=== PATIENT | female | born 1990 | race Caucasian/White ===

== ENCOUNTER → 2019-10-25 14:53 | Outpatient (CLI) | payer BC, SELFPAY ==
[2019-10-25 14:45] VITALS: BMI 22.6
--- NOTE | 2019-10-25 14:53 | RAD_ITS ---
STUDY: X-RAY - RIGHT SHOULDER REASON FOR EXAM: Female, 29 years old. FALL TECHNIQUE: 4 view(s) of the shoulder. COMPARISON: None. FINDINGS: Normal glenohumeral articulation. Normal acromioclavicular joint. Normal acromion. There is a nondisplaced avulsion type fracture of the greater tuberosity. The soft tissue structures are unremarkable. Normal visualized pulmonary apex. RAD/Shoulder min 2 Views IMPRESSION: Nondisplaced avulsion type fracture of the greater tuberosity of the proximal right humerus. Electronically Signed: David Fink, at 15:17 EST , Service support ,
== END ==
PROVIDERS: Referring Provider Physician Assistant; Visit Provider Physician Assistant
DX: S49.91XA Unspecified injury of right shoulder and upper arm, initial encounter (principal)
CPT/HCPCS: 73030

== ENCOUNTER → 2019-11-03 09:54 | Outpatient (CLI) | payer BC, SELFPAY ==
[2019-11-03 09:54] VITALS: BMI 22.6
--- NOTE | 2019-11-03 09:55 | RAD_ITS ---
STUDY: X-RAY - RIGHT SHOULDER REASON FOR EXAM: Female, 29 years old. FOLLOW UP RT SHOULDER FX COMPARISON: Previous right shoulder were obtained on 10/25/2019 FINDINGS: Studies of the right shoulder in [5 ] projections shows no evidence of fracture, dislocation, or bony destruction. RAD/Shoulder min 2 Views IMPRESSION: Normal x-ray examination of the shoulder. Electronically Signed: Jose Luis Zuluaga, at 11:41 EST Tel , Service support ,
== END ==
PROVIDERS: Referring Provider Orthopaedic Surgery; Visit Provider Orthopaedic Surgery
DX: S42.253A Displaced fracture of greater tuberosity of unspecified humerus, initial encounter for closed fracture (principal); X58.XXXA Exposure to other specified factors, initial encounter; Y93.9 Activity, unspecified; Y92.9 Unspecified place or not applicable; Y99.9 Unspecified external cause status
CPT/HCPCS: 73030

== ENCOUNTER → 2019-11-24 12:11 | Outpatient (CLI) | payer BC, SELFPAY ==
[2019-11-03 09:54] VITALS: BMI 22.6
--- NOTE | 2019-11-24 12:11 | RAD_ITS ---
STUDY: X-RAY - RIGHT SHOULDER REASON FOR EXAM: Female, 29 years old. Shoulder pain for one month after being pulled TECHNIQUE: 4 view(s) of the shoulder. COMPARISON: None. FINDINGS: Normal glenohumeral articulation. Normal acromioclavicular joint. Normal acromion. Normal humeral head and visualized proximal humerus. The soft tissue structures are unremarkable. Normal visualized pulmonary apex. RAD/Shoulder min 2 Views IMPRESSION: Normal x-ray examination of the shoulder. Electronically Signed: David Fink, at 12:36 EDT , Service support ,
== END ==
PROVIDERS: Referring Provider Orthopaedic Surgery; Visit Provider Orthopaedic Surgery
DX: S42.256 Nondisplaced fracture of greater tuberosity of unspecified humerus (principal)
CPT/HCPCS: 73030

== ENCOUNTER → 2019-12-22 10:28 | Outpatient (CLI) | payer BC, SELFPAY ==
[2019-11-24 12:21] VITALS: BMI 22.6
--- NOTE | 2019-12-22 10:33 | RAD_ITS ---
STUDY: X-RAY - RIGHT SHOULDER REASON FOR EXAM: Female, 29 years old. FX CHECK UP FROM FALL 2 MONTHS AGO TECHNIQUE: 3 view(s) of the shoulder. COMPARISON: None. FINDINGS: Normal glenohumeral articulation. Normal acromioclavicular joint. Normal acromion. Normal humeral head and visualized proximal humerus. The soft tissue structures are unremarkable. Normal visualized pulmonary apex. RAD/Shoulder min 2 Views IMPRESSION: Normal x-ray examination of the shoulder. Electronically Signed: Tate Martinez, at 14:32 EDT Tel , Service support ,
== END ==
PROVIDERS: Referring Provider Orthopaedic Surgery; Visit Provider Orthopaedic Surgery
DX: S42.256 Nondisplaced fracture of greater tuberosity of unspecified humerus (principal); X58.XXXD Exposure to other specified factors, subsequent encounter
CPT/HCPCS: 73030